=== PATIENT | male | born 1970 | race Caucasian/White ===

== ENCOUNTER 2021-09-15 10:38 | Emergency (ER) | payer OTHER ==
[~2021-09-15] VITALS: Ht 177.8 cm; Wt 97.1 kg
[2021-09-15 10:42] VITALS: BP 132/86
[2021-09-15] MEDS ORDERED: ALPRAZolam 0.5 MG TAB PO ONE (11:00)
[2021-09-15] MEDS ORDERED: MAGNESIUM CITRATE SOLUTION 300 ML BTL PO ONE (11:00)
== END 2021-09-15 12:58 | disposition home or self-care (01) ==
LOC: ER 10:38
DX: K59.00 Constipation, unspecified (principal); K57.92 Diverticulitis of intestine, part unspecified, without perforation or abscess without bleeding; R94.31 Abnormal electrocardiogram [ECG] [EKG]; I10 Essential (primary) hypertension; Z88.6 Allergy status to analgesic agent; Z87.820 Personal history of traumatic brain injury; Z87.442 Personal history of urinary calculi
CPT/HCPCS: 74176; 93005

== ENCOUNTER 2022-02-13 12:52 | Inpatient (IN) | payer OTHER ==
[~2022-02-13] VITALS: Ht 177.8 cm; Wt 96.3 kg
[2022-02-13] MEDS ORDERED: ONDANSETRON HCL 4 MG/2 ML VIAL ONE ×2 (12:56→14:04)
[2022-02-13] MEDS ORDERED: SODIUM CHLORIDE 0.9% 1,000 ML IVB ONE (13:15)
[2022-02-13] MEDS ORDERED: ONDANSETRON HCL 4 MG/2 ML VIAL IV ONE ×3 (13:30→18:15)
[2022-02-13] MEDS ORDERED: MORPHINE SULFATE 4 MG/ML SYR/VIAL IV ONE ×3 (14:00→18:15)
[2022-02-13] MEDS ORDERED: MORPHINE SULFATE 4 MG/ML SYR/VIAL ONE (14:04)
[2022-02-13 14:22] LABS: INR 0.96 (0.9-1.15); Partial Thromboplastin Time 21.1 sec (24.6-33.4)
[2022-02-13 14:24] LABS: Albumin 4.3 g/dL (3.4-5.0); Anion Gap 11 (5-15); Blood Alcohol < 3.0 mg/dL (0-5); Blood Urea Nitrogen 16 mg/dL (7-18); Calcium 9.8 mg/dL (8.5-10.1); Carbon Dioxide 21 mmol/L (21-32); Chloride 110 mmol/L (98-107); Glucose 123 mg/dL (74-106); Potassium 4.1 mmol/L (3.5-5.1); Sodium 142 mmol/L (136-145)
[2022-02-13 14:27] LABS: Alanine Aminotransferase 22 U/L (16-61); Alkaline Phosphatase 76 U/L (45-117); Aspartate Aminotransferase 14 U/L (15-37); BUN/Creatinine Ratio 12.8; Bilirubin, Total 0.4 mg/dL (0.2-1.0); GFR African American 78 mL/min; GFR Non-African American 64 mL/min; Total Protein 8.1 g/dL (6.4-8.2)
[2022-02-13 14:29] LABS: Lactic Acid w/Reflex 2.8 mmol/L (0.4-2.0)
[2022-02-13] MEDS ORDERED: METOCLOPRAMIDE HCL 5MG/ml INJ 2ml VIAL IV ONE (15:30)
[2022-02-13] MEDS ORDERED: hydrALAZINE HCL 20 MG/ML VL IV ONE (15:30)
[2022-02-13 16:43] LABS: Urine Bacteria NONE SEEN /hpf (None Seen); Urine Blood Negative /uL (Negative); Urine Specific Gravity 1.021 (1.001-1.035); Urine WBC <1 /hpf (0 - 3)
[2022-02-13 16:48] LABS: Amphetamine Screen, Urine NEGATIVE (NEGATIVE); Barbiturate Scree,Urine NEGATIVE (NEGATIVE); Benzodiazephine Screen, Urine NEGATIVE (NEGATIVE); Cannabinoid Screen, Urine POSITIVE (NEGATIVE); Cocaine Screen, Urine NEGATIVE (NEGATIVE); Phencyclidine Screen, Urine NEGATIVE (NEGATIVE)
[2022-02-13 16:55] LABS: Opiate Scree,Urine POSITIVE (NEGATIVE)
[2022-02-13] MEDS ORDERED: NITROGLYCERIN 0.4 MG SL TAB SL PRN (20:45)
[2022-02-13] MEDS ORDERED: MORPHINE SULFATE INJ 2 MG/ml SYRG IV PRN (20:45)
[2022-02-13 21:23] LABS: Hemoglobin 15.4 g/dL (13.5-17.5); Mean Corpuscular Hemoglobin 30.9 pg (28.0-32.0); Mean Corpuscular Hgb Conc. 33.6 g/dL (32.0-36.0); Red Cell Distribution Width 13.6 % (11.8-14.3); White Blood Cell 13.5 10^3/uL (4.4-10.8)
[2022-02-13 21:27] LABS: Basophils % (manual) 0 (0.0-2.0); Blast Cells 0; Metamyelocytes % 0; Myelocytes % 0; Promyelocytes % 0; Reactive Lymphocytes 0
[2022-02-13 21:41] LABS: Band Neutrophils % (manual) 1; Eosinophils % (manual) 1 (0-7); Lymphocytes % (manual) 5 (10.0-50.0); Monocytes % (manual) 5 (0-12)
[2022-02-13] MEDS ORDERED: TEMAZEPAM 15 MG CAP PO ONE (22:15)
[2022-02-13] MEDS: METOPROLOL TARTRATE 25 MG TAB PO SCH (22:39)
[2022-02-13] MEDS: TICAGRELOR 90 MG TAB PO SCH (22:46)
[2022-02-14] VITALS (7 sets, daily range): BP systolic 118–164; BP diastolic 66–103
[2022-02-14] MEDS: ONDANSETRON HCL 4 MG/2 ML VIAL IV PRN ×2 (01:05→12:02)
[2022-02-14] MEDS ORDERED: LOSA-39 PO (01:54)
[2022-02-14] MEDS ORDERED: ISO60SRT PO (01:54)
[2022-02-14] MEDS ORDERED: MET25T PO (01:54)
[2022-02-14] MEDS ORDERED: TICA90TA PO (01:54)
[2022-02-14] MEDS ORDERED: hydrALAZINE HCL 20 MG/ML VL IV ONE (02:30)
[2022-02-14 07:35] LABS: Basophils # (auto) 0 10 ^3/uL (0-0.2); Basophils % (auto) 0.3 % (0.0-2.0); Eosinophils # (auto) 0.1 10 ^3/uL (0-0.8); Eosinophils % (auto) 0.7 % (0.0-7.0); Hematocrit 41.2 % (41.0-53.0); Hemoglobin 13.9 g/dL (13.5-17.5); Lymphocytes # (auto) 1.6 10 ^3/uL (0.4-5.4); Lymphocytes % (auto) 15.5 % (10.0-50.0); Mean Corpuscular Hemoglobin 30.2 pg (28.0-32.0); Mean Corpuscular Hgb Conc. 33.6 g/dL (32.0-36.0); Mean Corpuscular Volume 89.7 fL (80.0-100.0); Monocytes # (auto) 0.7 10 ^3/uL (0-1.3); Monocytes % (auto) 6.9 % (0.0-12.0); Neutrophils # (auto) 8.1 10 ^3/uL (1.6-8.6); Neutrophils % (auto) 76.6 % (37.0-80.0); Red Blood Cells 4.59 10^6/uL (4.5-5.90); Red Cell Distribution Width 13.2 % (11.8-14.3); White Blood Cell 10.6 10^3/uL (4.4-10.8)
[2022-02-14 07:49] LABS: Albumin 3.7 g/dL (3.4-5.0); Calcium 8.6 mg/dL (8.5-10.1); Potassium 3.8 mmol/L (3.5-5.1)
[2022-02-14 07:53] LABS: Bilirubin, Total 0.8 mg/dL (0.2-1.0); Total Protein 7.1 g/dL (6.4-8.2)
[2022-02-14] MEDS ORDERED: ISOSORBIDE MONONITRATE ER 60 MG TAB PO SCH (10:00)
[2022-02-14] MEDS: LOSARTAN POTASSIUM 50 MG TAB PO SCH (10:20)
[2022-02-14] MEDS: PANTOPRAZOLE 40 MG TAB PO SCH (10:21)
[2022-02-14] MEDS: METOPROLOL TARTRATE 25 MG TAB PO SCH (10:21)
[2022-02-14] MEDS: TICAGRELOR 90 MG TAB PO SCH ×2 (10:21→22:06)
[2022-02-14] MEDS ORDERED: ASPirin 81 mg TAB PO ONE (14:30)
[2022-02-14] MEDS ORDERED: hydrALAZINE HCL 20 MG/ML VL IV PRN (14:30)
[2022-02-14] MEDS: ALPRAZolam 0.5 MG TAB PO SCH ×2 (14:40→22:06)
[2022-02-14] MEDS: ACETAMINOPHEN 325 MG TAB PO PRN (14:40)
[2022-02-14] MEDS: ATORVASTATIN 20 MG TAB PO SCH (22:06)
[2022-02-14] MEDS: METOPROLOL TARTRATE 50 MG TAB PO SCH (22:07)
[2022-02-15 05:00] VITALS: BP 158/97
[2022-02-15] MEDS: ALPRAZolam 0.5 MG TAB PO SCH ×3 (05:53→21:33)
[2022-02-15 06:00] LABS: Magnesium 2.2 mg/dL (1.6-2.6)
[2022-02-15 08:05] VITALS: BP 133/93
[2022-02-15 09:00] VITALS: BP 133/93
[2022-02-15] MEDS: TICAGRELOR 90 MG TAB PO SCH ×3 (09:37→21:33)
[2022-02-15] MEDS: ASPirin 81 mg TAB PO SCH ×2 (09:37→09:50)
[2022-02-15] MEDS: LOSARTAN POTASSIUM 50 MG TAB PO SCH ×2 (09:37→09:50)
[2022-02-15] MEDS: METOPROLOL TARTRATE 50 MG TAB PO SCH ×3 (09:38→21:33)
[2022-02-15] MEDS: PANTOPRAZOLE 40 MG TAB PO SCH ×2 (09:38→09:50)
[2022-02-15] MEDS: ISOSORBIDE MONONITRATE ER 60 MG TAB PO SCH ×2 (09:38→09:50)
[2022-02-15] MEDS ORDERED: ACCU-CHEK COMFORT CURVE STRIP VI ONE (09:55)
[2022-02-15] MEDS ORDERED: hydrALAZINE HCL 20 MG/ML VL IV ONE (10:15)
[2022-02-15 10:38] LABS: Basophils # (auto) 0.1 10 ^3/uL (0-0.2); Basophils % (auto) 0.6 % (0.0-2.0); Eosinophils # (auto) 0.1 10 ^3/uL (0-0.8); Eosinophils % (auto) 1.4 % (0.0-7.0); Hematocrit 41.3 % (41.0-53.0); Hemoglobin 13.9 g/dL (13.5-17.5); Lymphocytes # (auto) 1.9 10 ^3/uL (0.4-5.4); Lymphocytes % (auto) 19.1 % (10.0-50.0); Mean Corpuscular Hemoglobin 30.2 pg (28.0-32.0); Mean Corpuscular Hgb Conc. 33.6 g/dL (32.0-36.0); Mean Corpuscular Volume 89.8 fL (80.0-100.0); Monocytes # (auto) 0.8 10 ^3/uL (0-1.3); Monocytes % (auto) 7.6 % (0.0-12.0); Neutrophils # (auto) 7.1 10 ^3/uL (1.6-8.6); Neutrophils % (auto) 71.3 % (37.0-80.0); Nucleated Red Blood Cells % 0.1 %; Red Blood Cells 4.59 10^6/uL (4.5-5.90); Red Cell Distribution Width 13.5 % (11.8-14.3)
[2022-02-15 10:39] LABS: Albumin 3.8 g/dL (3.4-5.0); Calcium 8.8 mg/dL (8.5-10.1)
[2022-02-15 10:42] LABS: BUN/Creatinine Ratio 10.6; Bilirubin, Total 1.1 mg/dL (0.2-1.0); Total Protein 6.9 g/dL (6.4-8.2)
[2022-02-15] MEDS ORDERED: LORazepam 2MG/ML-1ML VIAL IV ONE (10:45)
[2022-02-15 13:00] VITALS: BP 144/94
[2022-02-15] MEDS: ACETAMINOPHEN 325 MG TAB PO PRN (14:41)
[2022-02-15 17:00] VITALS: BP 132/90
[2022-02-15] MEDS ORDERED: KETOROLAC TROMETH 30 MG/ML 1ML VIAL IV ONE (19:00)
[2022-02-15] MEDS: ATORVASTATIN 20 MG TAB PO SCH (21:33)
[2022-02-16 05:25] VITALS: BP 135/94
[2022-02-16] MEDS: ALPRAZolam 0.5 MG TAB PO SCH ×3 (05:39→22:07)
[2022-02-16] MEDS: METOPROLOL TARTRATE 50 MG TAB PO SCH ×2 (09:11→22:08)
[2022-02-16] MEDS: LOSARTAN POTASSIUM 50 MG TAB PO SCH (09:11)
[2022-02-16] MEDS: PANTOPRAZOLE 40 MG TAB PO SCH (09:11)
[2022-02-16] MEDS: ISOSORBIDE MONONITRATE ER 60 MG TAB PO SCH (09:12)
[2022-02-16] MEDS: ASPirin 81 mg TAB PO SCH (09:31)
[2022-02-16] MEDS: TICAGRELOR 90 MG TAB PO SCH ×2 (09:31→21:50)
[2022-02-16 09:36] VITALS: BP 140/99
[2022-02-16 13:00] VITALS: BP 138/96
[2022-02-16] MEDS ORDERED: LORazepam 2MG/ML-1ML VIAL IV PRN (16:45)
[2022-02-16 17:00] VITALS: BP 141/91
[2022-02-16 22:00] VITALS: BP 103/60
[2022-02-16] MEDS ORDERED: MIRTAZAPINE 30 MG TAB PO SCH (22:00)
[2022-02-16] MEDS: ATORVASTATIN 20 MG TAB PO SCH (22:07)
[2022-02-17 06:00] VITALS: BP 119/90
[2022-02-17] MEDS: ALPRAZolam 0.5 MG TAB PO SCH ×2 (06:18→14:05)
[2022-02-17 09:00] VITALS: BP 119/82
[2022-02-17] MEDS: PANTOPRAZOLE 40 MG TAB PO SCH (09:52)
[2022-02-17] MEDS: ISOSORBIDE MONONITRATE ER 60 MG TAB PO SCH (09:55)
[2022-02-17] MEDS: LOSARTAN POTASSIUM 50 MG TAB PO SCH (09:55)
[2022-02-17] MEDS: METOPROLOL TARTRATE 50 MG TAB PO SCH (09:56)
[2022-02-17] MEDS: ASPirin 81 mg TAB PO SCH (09:57)
[2022-02-17] MEDS: TICAGRELOR 90 MG TAB PO SCH (09:57)
[2022-02-17] MEDS ORDERED: MIRT-68 PO (10:09)
[2022-02-17 11:17] VITALS: BP 119/82
== END 2022-02-17 16:05 | disposition home or self-care (01) | DRG 253 ==
LOC: ER 12:52 → TELE 20:49 → TELE-CENTR 23:52
PROVIDERS: ADMIT Nurse Practitioner; ATTEND Family Medicine
DX: K62.5 Hemorrhage of anus and rectum (principal); I67.4 Hypertensive encephalopathy; I50.32 Chronic diastolic (congestive) heart failure; I11.0 Hypertensive heart disease with heart failure; Z20.822 Contact with and (suspected) exposure to COVID-19; F33.2 Major depressive disorder, recurrent severe without psychotic features; I16.1 Hypertensive emergency; F11.10 Opioid abuse, uncomplicated; E66.9 Obesity, unspecified; E78.00 Pure hypercholesterolemia, unspecified; F41.0 Panic disorder [episodic paroxysmal anxiety]; G93.0 Cerebral cysts; F12.10 Cannabis abuse, uncomplicated; E78.1 Pure hyperglyceridemia; J45.909 Unspecified asthma, uncomplicated; I25.10 Atherosclerotic heart disease of native coronary artery without angina pectoris; I25.2 Old myocardial infarction; Z79.02 Long term (current) use of antithrombotics/antiplatelets; Z79.82 Long term (current) use of aspirin; Z86.73 Personal history of transient ischemic attack (TIA), and cerebral infarction without residual deficits; Z98.1 Arthrodesis status; Z79.899 Other long term (current) drug therapy; Z81.8 Family history of other mental and behavioral disorders; Z82.49 Family history of ischemic heart disease and other diseases of the circulatory system; Z87.442 Personal history of urinary calculi; Z95.5 Presence of coronary angioplasty implant and graft; Z88.1 Allergy status to other antibiotic agents; Z88.5 Allergy status to narcotic agent; Z68.29 Body mass index [BMI] 29.0-29.9, adult
CPT/HCPCS: 36415; 70450; 70551; 71045; 74176; 80053; 80061; 80307; 80320; 81001; 82962; 83036; 83605; 83735; 84443; 84484; 85007; 85025; 85027; 85379; 85610; 85730; 87040; 87426; 93005; 93306; 95819; 96361; 96374; 96375; 96376; 99291; G0378; J2405

== ENCOUNTER 2024-11-23 10:47 | Inpatient (IN) | payer OTHER ==
[~2024-11-23] VITALS: Ht 177.8 cm; Wt 96.8 kg
[~2024-11-23 10:47] MED LIST: ISO60SRT PO; LOSA-535 PO; MET25T PO; MIRT-93 PO; TICA90TA PO
[2024-11-23] MEDS: AMOXICILLIN/CLAVUL 875 MG TAB PO ONE (11:18)
--- NOTE | 2024-11-23 11:18 | ED.PDOC ---
History of Present Illness(SKN HPI Comments 53y M who presents to the ED for chief complaint of dog bite. Pt states he was playing with dog last night and holding bone on L hand and dog bit pt on L index finger. Pt L index finger has since been swollen and tender and pt came today for evaluation. Pt in the ED, states he does not want to admitted and will be discharged on antibiotics. Pt states dog is vaccinated. Pt otherwise has stable vitals in the ED. Chief Complaint: Animal Bite Time Seen by MD: 11:00 Primary Care Provider: RADHA History of Present Illness: Medications, Allergies Allergies: Coded Allergies: Hydrocodone (Verified Allergy, Unknown, 09/15/21) Uncoded Allergies: IV CONTRAST (Allergy, Unknown, 09/15/21) Home Meds Active Scripts Mirtazapine (Remeron) 15 Mg Tab, 1 TAB PO QPM, #30 TAB 1 Refill Prov:DOMINIK SLOAN MD 02/17/22 Reported Medications Metoprolol Tartrate (Lopressor) 25 Mg Tb, 1 TAB PO BID 02/14/22 Isosorbide Mononitrate (Isosorbide Mononitrate ER) 60 Mg Tab, 1 TAB PO DAILYPRN 02/14/22 Ticagrelor Base (BRILINTA) 90 Mg Tab, 1 TAB PO BID 02/14/22 Losartan Potassium (Losartan Potassium) 100 Mg Tab, 1 TAB PO DAILYPRN 02/14/22 Information Source: Patient Mode of Arrival: Wheelchair Past Medical History PAST MEDICAL HISTORY: Anxiety, CVA, HTN, Kidney Stones, [place] Surgical History: PTCA Family History Family History: Reviewed,noncontributory to illness Social History Smoker: Non-Smoker Alcohol: Denies ETOH Use Drugs: Denies Drug Use Lives In: Home Constitutional: denies: chills, diaphoresis, fatigue, fever, malaise, sweats, weakness, others EENTM: denies: blurred vision, double vision, ear bleeding, ear discharge, ear drainage, ear pain, ear ringing, eye pain, eye redness, hearing loss, mouth pain, mouth swelling, nasal discharge, nose bleeding, nose congestion, nose pain, photophobia, tearing, throat pain, throat swelling, voice changes, others Respiratory: denies: cough, hemoptysis, orthopnea, SOB at rest, shortness of breath, SOB with excertion, stridor, wheezing, others Cardiovascular: denies: chest pain, dizzy spells, diaphoresis, Dyspnea on exertion, edema, irregular heart beat, left arm pain, lightheadedness, palpitations, PND, syncope, others Gastrointestinal: denies: abdomen distended, abdominal pain, blood streaked bowels, constipated, diarrhea, dysphagia, difficulty swallowing, hematemesis, melena, nausea, poor appetite, poor fluid intake, rectal bleeding, rectal pain, vomiting, others Genitourinary: denies: burning, dysuria, flank pain, frequency, hematuria, incontinence, penile discharge, penile sore, pain, testicle pain, testicle swelling, urgency, others Neurological: denies: dizziness, fainting, headache, left sided numbness, left sided weakness, numbness, paresthesia, pre-existing deficit, right sided numbness, right sided weakness, seizure, speech problems, tingling, tremors, weakness, others Musculoskeletal: denies: back pain, gout, joint pain, joint swelling, muscle pain, muscle stiffness, neck pain, others Integumetry: reports: others (L index finger swelling); denies: bruises, change in color, change in hair/nails, dryness, laceration, lesions, lumps, rash, wounds Allergic/Immunocompromised: denies: Difficulty Healing, Frequent Infections, Hives, Itching, others Hematologic/Lymphatic: denies: anemia, blood clots, easy bleeding, easy bruising, swollen glands, others Endocrine: denies: excessive hunger, excessive sweating, excessive thirst, excessive urination, flushing, intolerance to cold, intolerance to heat, unexplained weight gain, unexplained weight loss, others Psychiatric: denies: anxiety, bipolar disorder, depression, hopeless, panic disorder, schizophrenia, sleepless, suicidal, others All Other Systems: Reviewed and Negative Physical Exam General Appearance: No Apparent Distress, Normal HEENT: Normal ENT Inspection, Pharynx Normal, TMs Normal Neck: Full Range of Motion, Non-Tender, Normal, Normal Inspection Respiratory: Chest Non-Tender, Lungs Clear, No Accessory Muscle Use, No Respiratory Distress, Normal Breath Sounds Cardiovascular: No Edema, No JVD, No Murmur, No Gallop, Normal Peripheral Pulses, Regular Rate/Rhythm Breast Exam: Deferred Gastrointestinal: No Organomegaly, Non Tender, No Pulsatile Mass, Normal Bowel Sounds, Soft Genitalia: Deferred Pelvic: Deferred Rectal: Deferred Extremities: No calf tenderness, Normal capillary refill, Normal inspection, Normal range of motion, Non-tender, No pedal edema Musculoskeletal : Apperance: Normal Neurologic: Alert, therapy director II-XII nml as Tested, No Motor Deficits, Normal Affect, Normal Mood, No Sensory Deficits Cerebellar Function: Normal Reflexes: Normal Skin: Other (L index finger tender and swollen, on dorsal and palmar side, small puncture with erythema on dorsum of hand, no streaks noted) Lymphatic: No Adenopathy Was a procedure done? Was a procedure done?: No Differential Diagnosis (INTG) Differential Diagnosis: Abrasion, Cellulitis, Laceration, Puncture Wound, Other (dog bite) X-Ray, Labs, Meds, VS Vital Signs Date Time Temp Pulse Resp B/P (MAP) Pulse Ox O2 Delivery O2 Flow Rate FiO2 11/23/24 11:42 98.2 72 16 126/78 (94) 99 98.2 11/23/24 11:01 98.1 75 18 129/96 (107) 98 98.1 Current Medications Medications (Trade) Dose Ordered Sig/Shweta Route Start Time Stop Time Status Last Admin Amoxicillin/ Clavulanate Potassium (Augmentin Tablet) 875 mg ONCE ONCE PO 11/23/24 11:15 11/23/24 11:16 DC 11/23/24 11:18 Diphtheria/ Tetanus/Acell Pertussis (Boostrix T-Dap) 0.5 ml ONCE ONCE IM 11/23/24 11:15 11/23/24 11:16 DC 11/23/24 11:19 Time of 1ST Reevaluation: 11:45 Reevaluation 1ST: Unchanged Patient Education/Counseling: Diagnosis, Treatment, Prognosis, Need For Follow Up Family Education/Counseling: No Family Present Comments pt has evidence of cellulitis from a dog bite from last night. i feel with the rapidity of the progression, he will need to be admitted for iv ABX SEPSIS Sepsis Screen Date sepsis recognized/suspect: Nov 23, 2024 Time Sepsis recognized/suspect: 1106 Recent Procedure: No On Antibiotic Therapy: No Respiratory Rate >20: No Heart Rate >90: No Temp<36 C (96.8 F) or >38.3 C: No SBP <90 or MAP <65 mmHG: No New Acute Mental Status Change: No Is the patient on CPAP, BIPAP,: No Physician Orders Complete Blood Count (11/23/24 11:33) Basic Metabolic Panel (11/23/24 11:33) Heplock Iv (11/23/24 ) Vital Signs Date Time Temp Pulse Resp B/P (MAP) Pulse Ox O2 Delivery O2 Flow Rate FiO2 11/23/24 11:42 98.2 72 16 126/78 (94) 99 98.2 11/23/24 11:01 98.1 75 18 129/96 (107) 98 98.1 Medications Medications Dose Ordered Sig/Shweta Route Start Time Stop Time Status Last Admin Dose Admin Amoxicillin/ Clavulanate Potassium 875 mg ONCE ONCE PO 11/23/24 11:15 11/23/24 11:16 DC 11/23/24 11:18 Diphtheria/ Tetanus/Acell Pertussis 0.5 ml ONCE ONCE IM 11/23/24 11:15 11/23/24 11:16 DC 11/23/24 11:19 Departure 1 Departure Time of Disposition: 11:46 Impression: Primary Impression: Cellulitis Qualified Codes: L03.114 - Cellulitis of left upper limb Additional Impression: Dog bite Qualified Codes: W54.0XXA - Bitten by dog, initial encounter Disposition: ADMITTED INPATIENT Admit to: Med Surg Condition: Stable Discharged With: Self Critical Care Note Critical Care Time?: No Stability Stability form required: No Heart Score Heart Score: Heart Score Response (Comments) Value History N/A 0 EKG N/A 0 Age N/A 0 Risk Factors N/A 0 Troponin N/A 0 Total 0 I personally scribed for JIMBO CORONADO MD ([email or web address]) on 11/23/24 at 11:18. Electronically submitted by Audrey Artis ([email or web address]). JIMBO CORONADO MD Nov 23, 2024 11:18
[2024-11-23] MEDS: TETANUS-DIPTH-ACEL PERTUSSIS 0.5ML SYR Tdap IM ONE (11:19)
[2024-11-23 11:50] LABS: Hematocrit 44.1 % (41.0-53.0); Hemoglobin 14.9 g/dL (13.5-17.5); Mean Corpuscular Hemoglobin 30.1 pg (28.0-32.0); Mean Corpuscular Volume 88.9 fL (80.0-100.0); Nucleated Red Blood Cells % 0.0 %
[2024-11-23 11:59] LABS: Chloride 106 mmol/L (98-107); Potassium 3.7 mmol/L (3.5-5.1); Sodium 138 mmol/L (136-145)
[2024-11-23 12:00] LABS: Anion Gap 12 (5-15); Carbon Dioxide 20 mmol/L (20-31)
[2024-11-23] MEDS ORDERED: HYDROcodone-ACET 5/325MG TAB PO ONE (12:00)
[2024-11-23 12:02] LABS: Calcium 10.6 mg/dL (8.7-10.4)
[2024-11-23 12:05] LABS: BUN/Creatinine Ratio 8.0 (10.0-20.0); Blood Urea Nitrogen 11 mg/dL (9-23); Glucose 99 mg/dL (74-106)
[2024-11-23] MEDS: KETOROLAC TROMETH 30 MG/ML 1ML VIAL IV ONE (12:12)
[2024-11-23] MEDS: MORPHINE SULFATE INJ 2 MG/ml SYRG IV ONE (13:02)
--- NOTE | 2024-11-23 13:24 | DVHHP2 ---
History of Present Illness Reason for Visit: left hand pain History of Present Illness 53-year-old male with past medical history of anxiety, hypertension, CVA, kidney stones, and chronic constipation presents to the ED with left hand swelling and pain following a dog bite. Per the patient, the incident occurred Sunday evening while he was trying to feed his dog a bone. Since then, he has had persistent swelling and localized pain to the second digit and knuckle on the dorsal surface of the left hand. He denies fever, chills, or drainage from the site. He does report constipation for the past two days but denies abdominal pain, nausea, or vomiting. The patient is right-hand dominant and presented to the ED in a wheelchair accompanied by his . He received a tetanus booster today in the ED. On physical exam, there is swelling and tenderness over the second MCP joint and proximal phalanx with no obvious fluctuance. Lab evaluation reveals WBC of 16.9, suggesting possible infection. Creatinine was 1.38, calcium 2.6, otherwise CBC and BMP are unremarkable. Imaging of the hand is pending. Given concern for cellulitis vs deep space infection, patient will be admitted for IV antibiotics and further evaluation. Past Medical History See HPI above Past Surgical History See HPI above Family History Reviewed, non-contributory to the management of this case. Past Social History The patient lives at home, denies smoking, alcohol or illicit drugs abuse. Review of Systems Constitutional: No: Fever, Chills, Sweats, Weakness, Malaise, Other Eyes: No: Pain, Vision change, Conjunctivae inflammation, Eyelid inflammation, Other, Redness ENT: No: Ear pain, Ear discharge, Nose pain, Nose discharge, Nose congestion, Mouth pain, Mouth swelling, Throat pain, Throat swelling, Other Respiratory: No: Cough, Dry, Shortness of breath, SOB with excertion, Wheezing, Hemoptysis, Pleuritic Pain, Sputum, Wheezing, Other Cardiovascular: No: Chest Pain, Palpitations, Orthopnea, Paroxysmal Noc. Dyspnea, Edema, Lt Headedness, Other Gastrointestinal: No: Nausea, Vomiting, Abdominal Pain, Diarrhea, Constipation, Melena, Hematochezia, Other Genitourinary: No Dysuria, No Frequency, No Incontinence, No Hematuria, No Retention, No Other Musculoskeletal: hand pain; No: other, neck pain, shoulder pain, arm pain, back pain, leg pain, foot pain Skin: No: Rash, Lesions, Jaundice, Bruising, Other Neurological: No: Weakness, Numbness, Incoordination, Change in speech, Confusion, Seizures, Other Allergies: Coded Allergies: Hydrocodone (Verified Allergy, Unknown, 09/15/21) Uncoded Allergies: IV CONTRAST (Allergy, Unknown, 09/15/21) Exam Vital Signs Vital Signs Date Time Temp Pulse Resp B/P (MAP) Pulse Ox O2 Delivery O2 Flow Rate FiO2 11/23/24 13:02 74 18 126/81 11/23/24 13:02 96 11/23/24 11:42 98.2 98.2 General Appearance: Alert, Oriented X3, Cooperative, No acute distress HEENT: Atraumatic, PERRLA, EOMI, Mucous membr. moist/pink Respiratory: Clear to auscultation, Normal air movement Cardiovascular: Regular rate, Normal S1, Normal S2, No murmurs Abdominal: Normal bowel sounds, Soft, No tenderness, No hepatospenomegaly, No masses Extremities: No clubbing, Normal pulses, Other (Left-hand second digit dog bite around the knuckle joint redness streaking to the dorsal aspect of the head compartments soft decreased range of motion due to pain neurovascular intact) Skin: No rashes, No breakdown, No significant lesion Neuro: Normal speech, Strength at 5/5 X4 ext, Normal tone, Sensation intact, Cranial nerves 3-12 NL Psych/Mental Status: Mental status NL, Mood NL Labs/Xrays I reviewed labs, imaging CT scan abdomen pelvis, EKG and all diagnostic studies on this patient from ED records and the medical chart Labs Test 11/23/24 11:42 Range/Units White Blood Count 16.9 H 4.4-10.8 10^3/uL Red Blood Count 4.96 4.5-5.90 10^6/uL Hemoglobin 14.9 13.5-17.5 g/dL Hematocrit 44.1 41.0-53.0 % Mean Corpuscular Volume 88.9 80.0-100.0 fL Mean Corpuscular Hemoglobin 30.1 28.0-32.0 pg Mean Corpuscular Hemoglobin Concent 33.8 32.0-36.0 g/dL Red Cell Distribution Width 14.3 11.8-14.3 % Platelet Count 247 140-450 10^3/uL Mean Platelet Volume 8.1 6.9-10.8 fL Neutrophils (%) (Auto) 79.4 37.0-80.0 % Lymphocytes (%) (Auto) 10.7 10.0-50.0 % Monocytes (%) (Auto) 8.9 0.0-12.0 % Eosinophils (%) (Auto) 0.3 0.0-7.0 % Basophils (%) (Auto) 0.7 0.0-2.0 % Neutrophils # (Auto) 13.4 H 1.6-8.6 10 ^3/uL Lymphocytes # (Auto) 1.8 0.4-5.4 10 ^3/uL Monocytes # (Auto) 1.5 H 0-1.3 10 ^3/uL Eosinophils # (Auto) 0.1 0-0.8 10 ^3/uL Basophils # (Auto) 0.1 0-0.2 10 ^3/uL Nucleated Red Blood Cells 0.0 % Sodium Level 138 136-145 mmol/L Potassium Level 3.7 3.5-5.1 mmol/L Chloride Level 106 98-107 mmol/L Carbon Dioxide Level 20 20-31 mmol/L Anion Gap 12 5-15 Blood Urea Nitrogen 11 9-23 mg/dL Creatinine 1.38 H 0.700-1.30 mg/dL Glomerular Filtration Rate Calc 60 >90 mL/min BUN/Creatinine Ratio 8.0 L 10.0-20.0 Serum Glucose 99 74-106 mg/dL Calcium Level 10.6 H 8.7-10.4 mg/dL SEPSIS Sepsis Screen Date sepsis recognized/suspect: Nov 23, 2024 Time Sepsis recognized/suspect: 1105 Recent Procedure: No On Antibiotic Therapy: No Respiratory Rate >20: No Heart Rate >90: No Temp<36 C (96.8 F) or >38.3 C: No SBP <90 or MAP <65 mmHG: No New Acute Mental Status Change: No Is the patient on CPAP, BIPAP,: No Physician Orders Heplock Iv (11/23/24 ) L Hand 3v Xray (11/23/24 11:46) Vital Signs Date Time Temp Pulse Resp B/P (MAP) Pulse Ox O2 Delivery O2 Flow Rate FiO2 11/23/24 13:02 74 18 126/81 11/23/24 13:02 73 18 126/81 (96) 96 11/23/24 11:42 98.2 72 16 126/78 (94) 99 98.2 11/23/24 11:01 98.1 75 18 129/96 (107) 98 98.1 Laboratory Tests Test 11/23/24 11:42 White Blood Count 16.9 10^3/uL (4.4-10.8) H Medications Medications Dose Ordered Sig/Shweta Route Start Time Stop Time Status Last Admin Dose Admin Amoxicillin/ Clavulanate Potassium 875 mg ONCE ONCE PO 11/23/24 11:15 11/23/24 11:16 DC 11/23/24 11:18 875 MG Diphtheria/ Tetanus/Acell Pertussis 0.5 ml ONCE ONCE IM 11/23/24 11:15 11/23/24 11:16 DC 11/23/24 11:19 0.5 ML Ketorolac Tromethamine 15 mg ONCE ONCE IV 11/23/24 12:00 11/23/24 12:01 DC 11/23/24 12:12 15 MG Morphine Sulfate 2 mg ONCE ONCE IV 11/23/24 13:00 11/23/24 13:01 DC 11/23/24 13:02 2 MG Assessment/Plan Assessment/Plan 54 yr old male Left hand cellulitis following dog bite admitted for IV antibiotics and orthopedic evaluation. ASSESSMENT & PLAN acute Left hand cellulitis/Dog bite with localized swelling and pain over second digit/MCP joint No drainage or fluctuance noted Tetanus booster administered in ED Start Unasyn IV Elevate hand, apply warm compress X-ray of left hand ordered to evaluate for fracture or foreign body Ortho consult to evaluate for deep space infection vs tenosynovitis ordered morphine prn pain acute Leukocytosis WBC 16.9 Likely reactive to localized infection Monitor daily CBC acute Constipation Reports no bowel movement for 2 days Provide MiraLAX Encourage ambulation and hydration chronic problems Hypertension History of CVA Anxiety Chronic constipation Kidney stones FEN / PPx Fluids: IV NS at maintenance Electrolytes: Monitor BMP daily Nutrition: Regular diet, encourage fiber DVT Prophylaxis: SCDs until ambulatory GI Prophylaxis: Protonix Disposition Admit to medicine for IV antibiotics, orthopedic evaluation, and monitoring of localized hand infection from dog bite. Plan discussed with: Patient, Spouse Date of Service: Nov 23, 2024 Billing Provider: MARISSA CURIEL DNP Common Visit Codes: [id number] INP/OBS CARE (HIGH) MARISSA CURIEL [facility] Nov 23, 2024 13:24
[2024-11-23] MEDS ORDERED: NITROGLYCERIN 0.4 MG SL TAB SL PRN (13:30)
--- NOTE | 2024-11-23 13:31 | DVH ---
CLINICAL INDICATION: bite TECHNIQUE: XY L HAND 3V XRAY Comparison: None FINDINGS/IMPRESSION: : There is no evidence of acute fracture or dislocation. Mild osteoarthritic changes in the interphalangeal joints. Mild 1st CMC joint osteoarthritis. Overlying soft tissues are intact.
[2024-11-23] MEDS: SODIUM CHLORIDE 0.9% 1,000 ML IV SCH (13:40)
[2024-11-23] MEDS: AMPICILLIN & SULBACTAM SODIUM 3 GM in SODIUM CHL 0.9% 100 ML IV SCH (14:00)
--- NOTE | 2024-11-23 15:04 | DVHINCON2 ---
Date of service: Nov 23, 2024 Reason for Consultation Left hand dog bite History of Present Illness Mr. Nagy is a 53-year-old male who came to the hospital due to complaints of a dog bite that occurred on Sunday night to his left index finger. Patient notes that he was playing with his dog holding a bone when his dog accidentally bit his finger that has been having swelling and tenderness to the laceration since. Patient has been started on antibiotics and denied any other complaints or concerns during my evaluation. Past Medical History Hypertension, CVA, anxiety, kidney stones, and [place] Past Surgical History PTCA Family History: Ischemic heart disease G8 MOTHER Family History Noncontributory Social History Patient denies smoking, EtOH, or illicit substance abuse Allergies: Coded Allergies: Hydrocodone (Verified Allergy, Unknown, 09/15/21) Uncoded Allergies: IV CONTRAST (Allergy, Unknown, 09/15/21) Home Meds Active Scripts Mirtazapine (Remeron) 15 Mg Tab, 1 TAB PO QPM, #30 TAB 1 Refill Prov:DOMINIK SLOAN MD 02/17/22 Reported Medications Metoprolol Tartrate (Lopressor) 25 Mg Tb, 1 TAB PO BID 02/14/22 Isosorbide Mononitrate (Isosorbide Mononitrate ER) 60 Mg Tab, 1 TAB PO DAILYPRN 02/14/22 Ticagrelor Base (BRILINTA) 90 Mg Tab, 1 TAB PO BID 02/14/22 Losartan Potassium (Losartan Potassium) 100 Mg Tab, 1 TAB PO DAILYPRN 02/14/22 Current Medications Current Medications Medications (Trade) Dose Ordered Sig/Shweta Route PRN Reason Start Time Stop Time Status Last Admin Sodium Chloride 1,000 ml @ 120 mls/hr Q8H20M IV 11/23/24 13:30 11/23/24 13:40 Ondansetron HCl (Zofran) 4 mg Q4HP PRN IV NAUSEA / VOMITING 11/23/24 13:30 Docusate Sodium (Colace Capsule) 100 mg BIDPRN PRN PO FOR CONSTIPATION 11/23/24 13:30 Morphine Sulfate 2 mg Q4HPRN PRN IV SEVERE PAIN (7-10 PAIN SCALE) 11/23/24 13:30 Nitroglycerin (Ntrostat Sublingual) 0.4 mg Q5MINP PRN SL FOR CHEST PAIN 11/23/24 13:30 Ampicillin Sodium/ Sulbactam Sodium 3 gm/Sodium Chloride 100 ml @ 100 mls/hr Q6H IV 11/23/24 14:00 11/23/24 14:00 Review of Systems 10 point review of systems negative except as per HPI Vital Signs Vital Signs Date Time Temp Pulse Resp B/P (MAP) Pulse Ox O2 Delivery O2 Flow Rate FiO2 11/23/24 13:32 74 12 134/75 11/23/24 13:02 96 11/23/24 11:42 98.2 98.2 Physical Exam General appearance: A&O x4 in no acute distress HEENT: Normal ENT inspection, pharynx normal, TMs normal Neck: Full range of motion, nontender, normal inspection Respiratory: Chest nontender, without accessory muscle use, no respiratory distress Cardiovascular: No edema, no JVD, normal peripheral pulses Gastrointestinal: Soft, nontender, no organomegaly. Musculoskeletal: Left hand range of motion grossly intact with pain on movement to his index finger, tenderness along the palmar and dorsal lacerations, normal capillary refill, mild edema, neurovascularly intact. Skin: Dry, normal color, warm Lymphatic: No adenopathy Labs/Diagnostic Data Labs Test 11/23/24 11:42 Range/Units White Blood Count 16.9 H 4.4-10.8 10^3/uL Red Blood Count 4.96 4.5-5.90 10^6/uL Hemoglobin 14.9 13.5-17.5 g/dL Hematocrit 44.1 41.0-53.0 % Mean Corpuscular Volume 88.9 80.0-100.0 fL Mean Corpuscular Hemoglobin 30.1 28.0-32.0 pg Mean Corpuscular Hemoglobin Concent 33.8 32.0-36.0 g/dL Red Cell Distribution Width 14.3 11.8-14.3 % Platelet Count 247 140-450 10^3/uL Mean Platelet Volume 8.1 6.9-10.8 fL Neutrophils (%) (Auto) 79.4 37.0-80.0 % Lymphocytes (%) (Auto) 10.7 10.0-50.0 % Monocytes (%) (Auto) 8.9 0.0-12.0 % Eosinophils (%) (Auto) 0.3 0.0-7.0 % Basophils (%) (Auto) 0.7 0.0-2.0 % Neutrophils # (Auto) 13.4 H 1.6-8.6 10 ^3/uL Lymphocytes # (Auto) 1.8 0.4-5.4 10 ^3/uL Monocytes # (Auto) 1.5 H 0-1.3 10 ^3/uL Eosinophils # (Auto) 0.1 0-0.8 10 ^3/uL Basophils # (Auto) 0.1 0-0.2 10 ^3/uL Nucleated Red Blood Cells 0.0 % Sodium Level 138 136-145 mmol/L Potassium Level 3.7 3.5-5.1 mmol/L Chloride Level 106 98-107 mmol/L Carbon Dioxide Level 20 20-31 mmol/L Anion Gap 12 5-15 Blood Urea Nitrogen 11 9-23 mg/dL Creatinine 1.38 H 0.700-1.30 mg/dL Glomerular Filtration Rate Calc 60 >90 mL/min BUN/Creatinine Ratio 8.0 L 10.0-20.0 Serum Glucose 99 74-106 mg/dL Calcium Level 10.6 H 8.7-10.4 mg/dL Left hand x-ray reviewed and demonstrated:There is no evidence of acute fracture or dislocation. Mild osteoarthritic changes in the interphalangeal joints. Mild 1st CMC joint osteoarthritis. Overlying soft tissues are intact. Assessment Left index finger dog bite wound Plan/Recommendation I had a lengthy discussion with the patient and after discussing his case and reviewing his imaging studies with Dr. Arias we have recommended against any surgical intervention at this time and instead recommend continuing conservative treatment with rice as well as antibiotics. I advised the patient to follow up with our office on an outpatient basis for further evaluation and treatment. Please contact ortho again if there are any changes in the patient's symptoms or if he has any further questions or concerns. Patient understood and agreed. Thank you for allowing us to participate in the care of your patient. Plan discussed with: Patient BUSTILLOSMILAGROS Nov 23, 2024 15:04
[2024-11-23] MEDS: MORPHINE SULFATE INJ 2 MG/ml SYRG IV PRN (15:54)
[2024-11-23 17:00] VITALS: BP 161/81; PULSE 73; RESP 20; TEMP 97.7; O2SAT 97
[2024-11-23 18:12] VITALS: BP 161/81; PULSE 73; RESP 20; TEMP 97.7; O2SAT 97
[2024-11-23] MEDS: ONDANSETRON HCL 4 MG/2 ML VIAL IV PRN (18:16)
[2024-11-23 20:00] VITALS: PULSE 77; RESP 18; O2SAT 98
[2024-11-23] MEDS: DOCUSATE SOD 100 MG CAP PO PRN (20:30)
[2024-11-23 20:41] VITALS: BP 156/99; PULSE 77; RESP 18; TEMP 98.9; O2SAT 98
[2024-11-24 00:56] VITALS: BP 113/81; PULSE 86; RESP 20; TEMP 98.6; O2SAT 95
[2024-11-24 05:00] VITALS: BP 140/81; PULSE 69; RESP 16; TEMP 98; O2SAT 95
[2024-11-24 05:43] LABS: Hematocrit 38.6 % (41.0-53.0); Hemoglobin 13.3 g/dL (13.5-17.5); Mean Corpuscular Hemoglobin 30.5 pg (28.0-32.0); Mean Corpuscular Volume 88.6 fL (80.0-100.0); Nucleated Red Blood Cells % 0.0 %
[2024-11-24 05:55] LABS: Alanine Aminotransferase 16 U/L (7-40); Albumin 4.4 g/dL (3.2-4.8); Anion Gap 11 (5-15); BUN/Creatinine Ratio 12.0 (10.0-20.0); Blood Urea Nitrogen 15 mg/dL (9-23); Calcium 9.4 mg/dL (8.7-10.4); Carbon Dioxide 23 mmol/L (20-31); Glucose 93 mg/dL (74-106); Potassium 3.5 mmol/L (3.5-5.1); Sodium 142 mmol/L (136-145); Total Protein 6.5 g/dL (5.7-8.2)
[2024-11-24 05:56] LABS: Alkaline Phosphatase 38 U/L (46-116); Bilirubin, Total 0.9 mg/dL (0.2-1.0); Chloride 108 mmol/L (98-107)
[2024-11-24 08:15] VITALS: PULSE 91; RESP 22; O2SAT 99
[2024-11-24] MEDS ORDERED: AUG875T PO (08:19)
--- NOTE | 2024-11-24 08:25 | DVHDS2 ---
Discharge Summary Date of Admission Nov 23, 2024 at 13:18 Date of Discharge: Nov 24, 2024 Labs/Diagnostic Data: Laboratory Results Test 11/24/24 05:00 White Blood Count 11.3 10^3/uL (4.4-10.8) Red Blood Count 4.36 10^6/uL (4.5-5.90) Hemoglobin 13.3 g/dL (13.5-17.5) Hematocrit 38.6 % (41.0-53.0) Mean Corpuscular Volume 88.6 fL (80.0-100.0) Mean Corpuscular Hemoglobin 30.5 pg (28.0-32.0) Mean Corpuscular Hemoglobin Concent 34.4 g/dL (32.0-36.0) Red Cell Distribution Width 14.3 % (11.8-14.3) Platelet Count 215 10^3/uL (140-450) Mean Platelet Volume 8.3 fL (6.9-10.8) Neutrophils (%) (Auto) 78.8 % (37.0-80.0) Lymphocytes (%) (Auto) 12.0 % (10.0-50.0) Monocytes (%) (Auto) 7.7 % (0.0-12.0) Eosinophils (%) (Auto) 1.2 % (0.0-7.0) Basophils (%) (Auto) 0.3 % (0.0-2.0) Neutrophils # (Auto) 8.9 10 ^3/uL (1.6-8.6) Lymphocytes # (Auto) 1.4 10 ^3/uL (0.4-5.4) Monocytes # (Auto) 0.9 10 ^3/uL (0-1.3) Eosinophils # (Auto) 0.1 10 ^3/uL (0-0.8) Basophils # (Auto) 0 10 ^3/uL (0-0.2) Nucleated Red Blood Cells 0.0 % Sodium Level 142 mmol/L (136-145) Potassium Level 3.5 mmol/L (3.5-5.1) Chloride Level 108 mmol/L (98-107) Carbon Dioxide Level 23 mmol/L (20-31) Anion Gap 11 (5-15) Blood Urea Nitrogen 15 mg/dL (9-23) Creatinine 1.25 mg/dL (0.700-1.30) Glomerular Filtration Rate Calc 68 mL/min (>90) BUN/Creatinine Ratio 12.0 (10.0-20.0) Serum Glucose 93 mg/dL (74-106) Calcium Level 9.4 mg/dL (8.7-10.4) Total Bilirubin 0.9 mg/dL (0.2-1.0) Aspartate Amino Transferase (AST) 17 U/L (13-40) Alanine Aminotransferase (ALT) 16 U/L (7-40) Alkaline Phosphatase 38 U/L (46-116) Total Protein 6.5 g/dL (5.7-8.2) Albumin 4.4 g/dL (3.2-4.8) Other Laboratory Tests 11/24/24 05:00 Brief Hx & Hospital Course: Left index finger cellulitis due to dog bite Left index dog bite anxiety, HTN Old CVA, h/o kidney stones chronic constipation Chronic low back pain JASE due to [facility] 53 year old male had a dog bite, resulted in swelling in the left index He was admitted on IV antibiotics, [facility] consult obtained, recommended medical Tx Cellulitis is better IV fluids helped recover his renal function DC home on po Augmentin x10 days F/U PCP 1 week Resume home meds Condition at Discharge: Stable Final Diagnosis/Problems List Left index finger cellulitis due to dog bite Left index finger dog bite Discharge Disposition: Home SNF Discharge Will this Physician continue t: No Discharge Instruct/Medications Diet: Cardiac 2g Na,low cholest Activity: No Restrictions, As Tolerated Follow Up/Referral: PCP 1 week Medications: Augmentin 875 mg bid x 10 days Scheduled Amoxicillin & Pot Clavulanate (Augmentin Tablet), 875 MG PO BID Isosorbide Mononitrate (Isosorbide Mononitrate ER), 1 TAB PO DAILYPRN, (Reported) Losartan Potassium (Losartan Potassium), 1 TAB PO DAILYPRN, (Reported) Metoprolol Tartrate (Lopressor), 1 TAB PO BID, (Reported) Mirtazapine (Remeron), 1 TAB PO QPM Ticagrelor Base (Brilinta), 1 TAB PO BID, (Reported) Discharge Statement: "Patient was advised to return to the ER or call 911 if any headaches, dizziness, shortness of breath, chest pain, abdominal pain, bleeding, fevers, or worsening of medical condition. Patient was counseled about treatment plan, medications, possible side effects, patientverbalized understanding. All questions were answered to the best of my ability. This discharge took greater then 30 minutes in planning, reviewing documentation, counseling the patient, and discussing with other team members." ASSESSMENT ASSESSMENT Assessment Left index finger cellulitis due to dog bite Left index finger dog bite Date of Service: Nov 24, 2024 Billing Provider: WEST DÍAZ MD Common Visit Codes: NOT BILLABLE WEST DÍAZ MD Nov 24, 2024 08:25
[2024-11-24 08:42] VITALS: BP 154/100; PULSE 91; RESP 22; TEMP 97.9; O2SAT 99
[2024-11-24 10:05] VITALS: BP 154/104; PULSE 91; RESP 22; TEMP 97.9; O2SAT 99
== END 2024-11-24 11:11 | disposition home or self-care (01) | DRG 602 ==
LOC: ER 10:47 → OVERFLOW 13:18 → CENTRAL 17:31
PROVIDERS: ADMIT Internal Medicine Geriatric Medicine; ATTEND Internal Medicine Geriatric Medicine
DX: L03.012 Cellulitis of left finger (principal); N17.0 Acute kidney failure with tubular necrosis; F41.9 Anxiety disorder, unspecified; G89.29 Other chronic pain; I10 Essential (primary) hypertension; K59.09 Other constipation; S61.251A Open bite of left index finger without damage to nail, initial encounter; Z87.442 Personal history of urinary calculi; Z88.5 Allergy status to narcotic agent; Z86.73 Personal history of transient ischemic attack (TIA), and cerebral infarction without residual deficits; Z91.041 Radiographic dye allergy status; Z79.899 Other long term (current) drug therapy; W54.0XXA Bitten by dog, initial encounter; Y93.89 Activity, other specified; Y92.89 Other specified places as the place of occurrence of the external cause; Y99.8 Other external cause status
CPT/HCPCS: 36415; 73130; 80048; 80053; 85025; 90471; 90715; 96374; 96375; G0378; J1885; J2405